=== PATIENT | female | born 1945 | race Caucasian/White ===

== ENCOUNTER 2021-10-02 15:26 | Inpatient (IN) ==
[2021-10-02 16:53] LABS: Calcium 8.3 MG/DL (8.5-10.1); Potassium 4.6 MMOL/L (3.5-5.1)
[2021-10-02 17:26] LABS: Basophils # 0.1 10*3/uL (0.0-0.2); Basophils % 0.5 % (0.0-0.8); Eosinophils % 0.2 % (0.00-10.9); Hematocrit 26.2 VOL% (35.7-47.0); Hemoglobin 8.3 GM/DL (12.0-16.0); Immature Granulocytes % 2.6 %; Immature Granulocytes Absolute 0.46 #; Lymphocytes # 1.3 10*3/uL (1.4-4.0); Lymphocytes % 7.3 % (21.3-54.2); Mean Corpuscular HGB Conc 31.7 GM/DL (32-36); Mean Corpuscular Volume 91.6 FL (87-102); Mean Platelet Volume 10.5 FL (9.6-12.0); Monocytes % 6.2 % (1.7-12.7); Neutrophils % 83.2 % (38.7-73.9); Platelet Count 254 T/CUMM (130-400); Red Blood Count 2.86 MC/CUMM (3.8-5.5); Red Cell Distribution Width 15.5 % (9.3-17.3); White Blood Count 17.5 T/CUMM (4-12)
[2021-10-02 18:10] LABS: INR 1.1; PT Patient Result 11.9 SECS (10.5-12.0); Partial Thromboplastin Time 20.5 SECS (23.8-32.1)
[2021-10-02 18:14] LABS: Bacteria,Urine Occasional /HPF (Few); Bilirubin,Urine Negative (Negative); Blood, Urine Large mg/dL (Negative); Glucose,Urine (UA) Negative (Negative); Ketones,Urine Negative (Negative); Nitrite,Urine Negative (Negative); Protein,Urine Negative; RBC,Urine <1 /HPF (0-4); Urine Appearance CLEAR (Clear); Urine Color Yellow (Yellow); Urine Specific Gravity 1.021 (1.001-1.035); Urine Urobilinogen < 2.0 EU/DL (<2.0)
[2021-10-02] MEDS ORDERED: SODIUM CHLORIDE 0.9% 1,000 ML IV STA (18:15)
[2021-10-02] MEDS ORDERED: PANTOPRAZOLE INJ 80 MG in SODIUM CHLORIDE 0.9% 100 ML IV ONE ×2 (18:25→21:00)
[2021-10-02] MEDS ORDERED: PANTOPRAZOLE INJ 200 MG in SODIUM CHLORIDE 0.9% 250 ML IV SCH ×2 (18:30→22:00)
[2021-10-02] MEDS ORDERED: GLUCAGON 1 MG VIAL IM PRN (20:07)
[2021-10-02] MEDS ORDERED: DEXTROSE 10% 250 ML BAG IV PRN (20:25)
[2021-10-02 20:26] LABS: Hematocrit 25.4 VOL% (35.7-47.0); Hemoglobin 7.8 GM/DL (12.0-16.0)
[2021-10-02] MEDS ORDERED: PIPERACILLIN/TAZOBACTAM 3,375 MG in SODIUM CHLORIDE 0.9% 100 ML IV SCH (20:30)
[2021-10-02] MEDS: DEXT 5% NACL 0.45% KCL 20 MEQ 20 MEQ/1,000 ML BAG IV SCH (22:32)
[2021-10-02] MEDS ORDERED: SODIUM CHLORIDE 0.9% 1,000 ML IV PRN (22:55)
[2021-10-02 22:56] LABS: Basophils # 0.1 10*3/uL (0.0-0.2); Basophils % 0.3 % (0.0-0.8); Eosinophils % 0.1 % (0.00-10.9); Hematocrit 20.3 VOL% (35.7-47.0); Immature Granulocytes % 2.1 %; Immature Granulocytes Absolute 0.36 #; Lymphocytes # 2.2 10*3/uL (1.4-4.0); Lymphocytes % 12.3 % (21.3-54.2); Mean Corpuscular Volume 91.9 FL (87-102); Mean Platelet Volume 10.3 FL (9.6-12.0); Monocytes % 5.8 % (1.7-12.7); NRBC # 0.02 10*3/uL; Neutrophils % 79.4 % (38.7-73.9); Platelet Count 244 T/CUMM (130-400); Red Blood Count 2.21 MC/CUMM (3.8-5.5); Red Cell Distribution Width 15.5 % (9.3-17.3); White Blood Count 17.5 T/CUMM (4-12)
[2021-10-02 23:06] LABS: Hemoglobin 6.3 GM/DL (12.0-16.0)
[2021-10-03] MEDS ORDERED: SODIUM CHLORIDE 0.9% 1,000 ML IV PRN ×4 (00:14→06:01)
[2021-10-03] MEDS ORDERED: OCTREOTIDE 100 MCG/ML SYRINGE IV STA (00:17)
[2021-10-03] MEDS ORDERED: OCTREOTIDE 500 MCG in SODIUM CHLORIDE 0.9% 100 ML IV SCH (01:00)
[2021-10-03] MEDS ORDERED: VANCOMYCIN INJ 1,250 MG in SODIUM CHLORIDE 0.9% 250 ML IV SCH (03:00)
[2021-10-03] MEDS ORDERED: PROMETHAZINE 25 MG/1 ML VIAL ONE (04:03)
[2021-10-03] MEDS ORDERED: PROMETHAZINE INJ 25 MG in SODIUM CHLORIDE 0.9% 50 ML IV STA (04:20)
[2021-10-03 04:39] LABS: Alanine Aminotransferase 18 U/L (13-56); Albumin 2.8 G/DL (3.4-5.0); Alkaline Phosphatase 71 U/L (45-117); Aspartate Amino Transferase 15 U/L (0-37); Bilirubin,Direct < 0.100 MG/DL (0.0-0.20); Bilirubin,Indirect 0.3 MG/DL (0.0-1.0); Bilirubin,Total < 0.39 MG/DL (0.20-1.00)
[2021-10-03] MEDS ORDERED: PHENYLEPHRINE DRIP 20 MG/250 ML PREMIX IV ONE (05:09)
[2021-10-03 05:23] LABS: Basophils # 0.1 10*3/uL (0.0-0.2); Basophils % 0.5 % (0.0-0.8); Immature Granulocytes % 3.8 %; Immature Granulocytes Absolute 0.79 #; Lymphocytes # 2.8 10*3/uL (1.4-4.0); Lymphocytes % 13.4 % (21.3-54.2); Mean Corpuscular HGB Conc 31.4 GM/DL (32-36); Mean Corpuscular Volume 93.9 FL (87-102); Mean Platelet Volume 10.4 FL (9.6-12.0); NRBC # 0.04 10*3/uL; Neutrophils % 77.3 % (38.7-73.9)
[2021-10-03 05:35] LABS: Hemoglobin 9.1 GM/DL (12.0-16.0); Platelet Count 143 T/CUMM (130-400); Red Blood Count 3.09 MC/CUMM (3.8-5.5)
[2021-10-03 05:47] LABS: Hypochromia 1+; Lymphocytes 12 % (20-55); Microcytosis 1+; Platelet Estimate Adequate; Segmented Neutrophils 87 % (50-85); Total Cells Counted 100
[2021-10-03] MEDS ORDERED: SODIUM CHLORIDE 0.9% 1,000 ML IV ONE ×2 (06:25→08:52)
[2021-10-03] MEDS ORDERED: LIDOCAINE 2% 5 ML VIAL ONE (06:25)
[2021-10-03] MEDS ORDERED: SUCCINYLCHOLINE 200 MG/10 ML VIAL ONE (06:25)
[2021-10-03] MEDS ORDERED: propofoL 200 MG/20 ML VIAL IV ONE (06:25)
[2021-10-03] MEDS ORDERED: ROCURONIUM 50 MG/5 ML VIAL IV ONE (06:25)
[2021-10-03] MEDS ORDERED: ONDANSETRON 4 MG/2 ML VIAL ONE (06:25)
[2021-10-03] MEDS ORDERED: ETOMIDATE 40 MG/20 ML VIAL IV ONE (06:25)
[2021-10-03] MEDS ORDERED: PHENYLEPHRINE 1 MG/10 ML SYRINGE IV ONE (06:25)
[2021-10-03] MEDS ORDERED: SEVOFLURANE 1 UNIT/15 MINUTE INH ONE ×3 (06:25)
[2021-10-03] MEDS ORDERED: MIDAZOLAM 100 MG in SODIUM CHLORIDE 0.9% 80 ML IV PRN (07:03)
[2021-10-03] MEDS: DEXT 5% NACL 0.45% KCL 20 MEQ 20 MEQ/1,000 ML BAG IV SCH (07:37)
[2021-10-03 08:19] LABS: Basophils # 0.2 10*3/uL (0.0-0.2); Basophils % 0.7 % (0.0-0.8); Immature Granulocytes % 4.6 %; Immature Granulocytes Absolute 1.44 #; Lymphocytes # 2.9 10*3/uL (1.4-4.0); Lymphocytes % 9.2 % (21.3-54.2); Mean Corpuscular HGB Conc 31.7 GM/DL (32-36); Mean Corpuscular Volume 92.7 FL (87-102); Mean Platelet Volume 10.1 FL (9.6-12.0); Monocytes % 7.7 % (1.7-12.7); NRBC # 0.05 10*3/uL; Neutrophils % 77.8 % (38.7-73.9); Red Cell Distribution Width 14.8 % (9.3-17.3)
[2021-10-03 08:27] LABS: Red Blood Count 4.96 MC/CUMM (3.8-5.5); White Blood Count 31.1 T/CUMM (4-12)
[2021-10-03 08:28] LABS: Hemoglobin 14.6 GM/DL (12.0-16.0); Platelet Count 173 T/CUMM (130-400)
[2021-10-03 08:38] LABS: Band Neutrophils 1 % (0-10); Lymphocytes 6 % (20-55); Platelet Estimate Adequate; Segmented Neutrophils 88 % (50-85); Total Cells Counted 100
[2021-10-03 09:03] LABS: Calcium 6.8 MG/DL (8.5-10.1); Osmolality,Calculated 305.7 MOS/KG (273-304); Potassium 5.5 MMOL/L (3.5-5.1)
[2021-10-03 09:04] LABS: Alanine Aminotransferase 17 U/L (13-56); Albumin 2.2 G/DL (3.4-5.0); Alkaline Phosphatase 54 U/L (45-117); Aspartate Amino Transferase 17 U/L (0-37); Bilirubin,Total < 0.39 MG/DL (0.20-1.00); Blood Urea Nitrogen 46 MG/DL (7-18); Calcium 6.9 MG/DL (8.5-10.1); Carbon Dioxide 17 MMOL/L (21-32); Estimated Glom Filtration Rate 38 ML/MIN; Glucose 211 MG/DL (74-106); HDL Cholesterol 22 MG/DL (40-60); Osmolality,Calculated 303.8 MOS/KG (273-304); Potassium 5.4 MMOL/L (3.5-5.1); Risk Ratio 4.05; Sodium 144 MMOL/L (136-145); Thyroid Stimulating Hormone 0.732 uIU/ml (0.358-3.74); Total Protein 4.8 G/DL (6.4-8.2); Triglycerides 187 MG/DL (2-150); VLDL Cholesterol 37.4 MG/DL
[2021-10-03] MEDS: MEROPENEM 500 MG in SODIUM CHLORIDE 0.9% 100 ML IV SCH ×2 (10:00→11:17)
[2021-10-03] MEDS: LEVOTHYROXINE 100 MCG VIAL IV SCH (10:55)
[2021-10-03] MEDS: cefTRIAXone 1,000 MG in SODIUM CHLORIDE 0.9% 100 ML IV SCH (11:01)
[2021-10-03 11:03] LABS: Bilirubin,Urine Negative (Negative); Blood, Urine Negative (Negative); Glucose,Urine (UA) Negative (Negative); Hyaline Casts,Urine 1 /LPF (0-3); Ketones,Urine Negative (Negative); Mucus,Urine Occasional /LPF (Occasional); Nitrite,Urine Negative (Negative); Protein,Urine Negative; RBC,Urine 1 /HPF (0-4); Squamous Epithelial Cell,Urine Occasional /HPF (0-10); Urine Appearance CLEAR (Clear); Urine Color Yellow (Yellow); Urine Specific Gravity 1.035 (1.001-1.035); Urine Urobilinogen < 2.0 EU/DL (<2.0)
[2021-10-03 11:39] LABS: ABG Base Excess -11.5 MMOL/L (-2.5-2.5); ABG HCO3 15.6 MMOL/L (20-26); ABG Oxygen Saturation 99.8 % (95-100); ABG PCO2 29.3 MM HG (35-48); ABG PH 7.288 (7.35-7.45); ABG TCO2 12.3 MMOL/L (23-27)
[2021-10-03] MEDS ORDERED: SODIUM BICARBONATE 50 MEQ/50 ML VIAL IV ONE (11:50)
[2021-10-03 12:52] LABS: Hematocrit 45.2 VOL% (35.7-47.0); Hemoglobin 14.7 GM/DL (12.0-16.0)
[2021-10-04 04:26] LABS: ABG Base Excess -2.3 MMOL/L (-2.5-2.5); ABG HCO3 22.5 MMOL/L (20-26); ABG Oxygen Saturation 99.4 % (95-100); ABG PCO2 36.1 MM HG (35-48); ABG PH 7.395 (7.35-7.45)
[2021-10-04 04:47] LABS: PT Patient Result 11.4 SECS (10.5-12.0)
[2021-10-04 04:57] LABS: Basophils # 0.1 10*3/uL (0.0-0.2); Basophils % 0.6 % (0.0-0.8); Eosinophils # 0.1 10*3/uL (0.0-0.87); Eosinophils % 0.8 % (0.00-10.9); Hematocrit 31.6 VOL% (35.7-47.0); Hemoglobin 10.6 GM/DL (12.0-16.0); Immature Granulocytes % 3.3 %; Immature Granulocytes Absolute 0.43 #; Lymphocytes # 1.2 10*3/uL (1.4-4.0); Lymphocytes % 8.8 % (21.3-54.2); Mean Corpuscular HGB Conc 33.5 GM/DL (32-36); Mean Corpuscular Volume 89.3 FL (87-102); Mean Platelet Volume 10.3 FL (9.6-12.0); Monocytes % 9.9 % (1.7-12.7); NRBC # 0.02 10*3/uL; Neutrophils % 76.6 % (38.7-73.9); Platelet Count 113 T/CUMM (130-400); Red Blood Count 3.54 MC/CUMM (3.8-5.5); Red Cell Distribution Width 14.7 % (9.3-17.3); White Blood Count 13.2 T/CUMM (4-12)
[2021-10-04 04:58] LABS: Alanine Aminotransferase 17 U/L (13-56); Alkaline Phosphatase 46 U/L (45-117); Aspartate Amino Transferase 15 U/L (0-37); Bilirubin,Total < 0.39 MG/DL (0.20-1.00); Blood Urea Nitrogen 40 MG/DL (7-18); Calcium 7.3 MG/DL (8.5-10.1); Carbon Dioxide 22 MMOL/L (21-32); Estimated Glom Filtration Rate 63 ML/MIN; Glucose 151 MG/DL (74-106); Osmolality,Calculated 308.1 MOS/KG (273-304); Sodium 149 MMOL/L (136-145); Total Protein 4.6 G/DL (6.4-8.2)
[2021-10-04 05:17] LABS: Microcytosis 1+
[2021-10-04 05:18] LABS: Polychromasia Slight
[2021-10-04] MEDS: LEVOTHYROXINE 100 MCG VIAL IV SCH (06:45)
[2021-10-04] MEDS ORDERED: PANTOPRAZOLE 40 MG VIAL IV ONE (07:55)
[2021-10-04] MEDS: PANTOPRAZOLE 40 MG VIAL IV SCH ×2 (08:05→20:23)
[2021-10-04] MEDS ORDERED: SODIUM CHLORIDE 0.45% 1,000 ML IV SCH (10:30)
[2021-10-04] MEDS: cefTRIAXone 1,000 MG in SODIUM CHLORIDE 0.9% 100 ML IV SCH (12:20)
[2021-10-04] MEDS ORDERED: SODIUM CHLORIDE 0.9% 1,000 ML IV ONE (23:53)
[2021-10-05] MEDS ORDERED: SODIUM CHLORIDE 0.9% 1,000 ML IV PRN (01:13)
[2021-10-05 01:46] LABS: Basophils % 0.4 % (0.0-0.8); Eosinophils % 1.2 % (0.00-10.9); Hematocrit 23.7 VOL% (35.7-47.0); Hemoglobin 7.7 GM/DL (12.0-16.0); Immature Granulocytes % 2.2 %; Lymphocytes % 12.7 % (21.3-54.2); Mean Corpuscular HGB Conc 32.5 GM/DL (32-36); Mean Corpuscular Volume 91.2 FL (87-102); Mean Platelet Volume 10.6 FL (9.6-12.0); Neutrophils % 75.5 % (38.7-73.9); Platelet Count 88 T/CUMM (130-400); Red Cell Distribution Width 14.8 % (9.3-17.3); White Blood Count 8.1 T/CUMM (4-12)
[2021-10-05 01:47] LABS: ABG Base Excess 1.7 MMOL/L (-2.5-2.5); ABG HCO3 25.9 MMOL/L (20-26); ABG Oxygen Saturation 96.8 % (95-100); ABG PCO2 38.6 MM HG (35-48); ABG PH 7.444 (7.35-7.45); ABG PO2 95.8 MM HG (80-95); ABG TCO2 27.1 MMOL/L (23-27); Eosinophils # 0.1 10*3/uL (0.0-0.87); Immature Granulocytes Absolute 0.18 #; NRBC # 0.02 10*3/uL
[2021-10-05] MEDS ORDERED: SODIUM CHLORIDE 0.9% 500 ML IV ONE (03:56)
[2021-10-05 05:01] LABS: ABG Base Excess -0.7 MMOL/L (-2.5-2.5); ABG HCO3 23.9 MMOL/L (20-26); ABG Oxygen Saturation 97.2 % (95-100); ABG PCO2 38.7 MM HG (35-48); ABG PH 7.408 (7.35-7.45); ABG PO2 101.9 MM HG (80-95); ABG TCO2 25.1 MMOL/L (23-27)
[2021-10-05 05:13] LABS: Basophils % 0.3 % (0.0-0.8); Eosinophils # 0.1 10*3/uL (0.0-0.87); Hematocrit 25.3 VOL% (35.7-47.0); Hemoglobin 8.2 GM/DL (12.0-16.0); Immature Granulocytes Absolute 0.14 #; Lymphocytes % 13.8 % (21.3-54.2); Mean Corpuscular HGB Conc 32.4 GM/DL (32-36); Mean Corpuscular Volume 92.3 FL (87-102); Mean Platelet Volume 9.8 FL (9.6-12.0); Neutrophils % 74.9 % (38.7-73.9); Platelet Count 69 T/CUMM (130-400); Red Blood Count 2.74 MC/CUMM (3.8-5.5); Red Cell Distribution Width 14.6 % (9.3-17.3)
[2021-10-05 05:32] LABS: Alanine Aminotransferase 15 U/L (13-56); Albumin 1.6 G/DL (3.4-5.0); Alkaline Phosphatase 49 U/L (45-117); Aspartate Amino Transferase 17 U/L (0-37); Bilirubin,Total < 0.39 MG/DL (0.20-1.00); Blood Urea Nitrogen 17 MG/DL (7-18); Calcium 6.8 MG/DL (8.5-10.1); Carbon Dioxide 25 MMOL/L (21-32); Estimated Glom Filtration Rate 97 ML/MIN; Glucose 93 MG/DL (74-106); Osmolality,Calculated 300.9 MOS/KG (273-304); Potassium 3.4 MMOL/L (3.5-5.1); Sodium 151 MMOL/L (136-145); Total Protein 3.9 G/DL (6.4-8.2)
[2021-10-05 05:36] LABS: Hypochromia 1+; Microcytosis 1+; Platelet Estimate Decreased
[2021-10-05] MEDS: LEVOTHYROXINE 100 MCG VIAL IV SCH (06:20)
[2021-10-05] MEDS ORDERED: CALCIUM GLUCONATE RIDER 2,000 MG/100 ML PREMIX IV ONE (09:01)
[2021-10-05] MEDS ORDERED: POTASSIUM CHLORIDE RIDER 10 MEQ/100 ML PREMIX IV PRN (09:02)
[2021-10-05] MEDS ORDERED: POTASSIUM CHLORIDE RIDER 20 MEQ/100 ML PREMIX IV ONE (09:17)
[2021-10-05] MEDS: PANTOPRAZOLE 40 MG VIAL IV SCH ×2 (09:36→21:20)
[2021-10-05] MEDS: POTASSIUM CHLORIDE RIDER 20 MEQ/100 ML PREMIX IV PRN (09:37)
[2021-10-05] MEDS: BISACODYL 5 MG TABLET PO SCH ×2 (14:36→21:20)
[2021-10-05] MEDS: cefTRIAXone 1,000 MG in SODIUM CHLORIDE 0.9% 100 ML IV SCH (14:36)
[2021-10-05 14:37] LABS: Hematocrit 27.6 VOL% (35.7-47.0)
[2021-10-05] MEDS: POTASSIUM CHLORIDE 20 MEQ TABLET PO SCH ×2 (14:37→21:20)
[2021-10-05] MEDS ORDERED: POLYETHYLENE GLYCOL POWDER 255 GM BOTTLE PO ONE (18:00)
[2021-10-05] MEDS ORDERED: MAGNESIUM CITRATE 300 ML BOTTLE PO ONE (21:00)
[2021-10-05] MEDS ORDERED: hydrALAZINE 20 MG/1 ML VIAL IV ONE (22:00)
[2021-10-05 22:31] LABS: Hemoglobin 9.9 GM/DL (12.0-16.0)
[2021-10-06 04:46] LABS: Basophils % 0.3 % (0.0-0.8); Eosinophils # 0.1 10*3/uL (0.0-0.87); Eosinophils % 1.3 % (0.00-10.9); Hemoglobin 8.8 GM/DL (12.0-16.0); Immature Granulocytes % 2.2 %; Immature Granulocytes Absolute 0.16 #; Lymphocytes # 0.7 10*3/uL (1.4-4.0); Lymphocytes % 9.2 % (21.3-54.2); Mean Corpuscular HGB Conc 32.6 GM/DL (32-36); Mean Corpuscular Volume 91.5 FL (87-102); Mean Platelet Volume 10.1 FL (9.6-12.0); Monocytes % 7.4 % (1.7-12.7); NRBC # 0.02 10*3/uL; Neutrophils % 79.6 % (38.7-73.9); Platelet Count 104 T/CUMM (130-400); Red Blood Count 2.95 MC/CUMM (3.8-5.5); Red Cell Distribution Width 14.6 % (9.3-17.3); White Blood Count 7.2 T/CUMM (4-12)
[2021-10-06 05:00] LABS: Alanine Aminotransferase 74 U/L (13-56); Alkaline Phosphatase 114 U/L (45-117); Aspartate Amino Transferase 73 U/L (0-37); Bilirubin,Total < 0.39 MG/DL (0.20-1.00); Blood Urea Nitrogen 11 MG/DL (7-18); Carbon Dioxide 25 MMOL/L (21-32); Estimated Glom Filtration Rate 99 ML/MIN; Glucose 97 MG/DL (74-106); Osmolality,Calculated 288.6 MOS/KG (273-304); Potassium 3.6 MMOL/L (3.5-5.1); Sodium 146 MMOL/L (136-145); Total Protein 4.7 G/DL (6.4-8.2)
[2021-10-06 05:02] LABS: Hypochromia 1+; Microcytosis 1+; Platelet Estimate Decreased
[2021-10-06] MEDS: BISACODYL 5 MG TABLET PO SCH (05:59)
[2021-10-06] MEDS: LEVOTHYROXINE 100 MCG VIAL IV SCH ×2 (06:14→06:20)
[2021-10-06] MEDS ORDERED: LACTATED RINGERS 1,000 ML IV SCH (06:30)
[2021-10-06] MEDS: PANTOPRAZOLE 40 MG VIAL IV SCH ×2 (08:10→21:33)
[2021-10-06] MEDS: FOLIC ACID 1 MG TABLET PO SCH (08:10)
[2021-10-06] MEDS: POTASSIUM CHLORIDE 20 MEQ TABLET PO SCH (08:10)
[2021-10-06 13:45] LABS: Basophils % 0.3 % (0.0-0.8); Eosinophils # 0.1 10*3/uL (0.0-0.87); Eosinophils % 1.3 % (0.00-10.9); Immature Granulocytes % 2.2 %; Immature Granulocytes Absolute 0.16 #; Lymphocytes # 0.6 10*3/uL (1.4-4.0); Lymphocytes % 8.2 % (21.3-54.2); Mean Corpuscular Volume 93.5 FL (87-102); Mean Platelet Volume 10.5 FL (9.6-12.0); Monocytes % 6.2 % (1.7-12.7); NRBC # 0.04 10*3/uL; Neutrophils % 81.8 % (38.7-73.9); Platelet Count 112 T/CUMM (130-400); Red Blood Count 2.14 MC/CUMM (3.8-5.5); Red Cell Distribution Width 14.5 % (9.3-17.3); White Blood Count 7.4 T/CUMM (4-12)
[2021-10-06 13:49] LABS: Hemoglobin 6.4 GM/DL (12.0-16.0)
[2021-10-06] MEDS ORDERED: LACTATED RINGERS 500 ML IV ONE (13:52)
[2021-10-06] MEDS: ASPIRIN CHEW 81 MG TABLET PO SCH (14:06)
[2021-10-06] MEDS: cefTRIAXone 1,000 MG in SODIUM CHLORIDE 0.9% 100 ML IV SCH (14:37)
[2021-10-06] MEDS: LACTATED RINGERS 1,000 ML IV SCH (19:30)
[2021-10-06] MEDS ORDERED: MAGNESIUM CITRATE 300 ML BOTTLE PO ONE ×2 (20:00→21:00)
[2021-10-06 21:15] LABS: Hematocrit 24.2 VOL% (35.7-47.0)
[2021-10-06 21:16] LABS: Hemoglobin 7.9 GM/DL (12.0-16.0)
[2021-10-07 03:51] LABS: Basophils % 0.2 % (0.0-0.8); Eosinophils # 0.2 10*3/uL (0.0-0.87); Eosinophils % 1.8 % (0.00-10.9); Hematocrit 22.5 VOL% (35.7-47.0); Hemoglobin 7.2 GM/DL (12.0-16.0); Immature Granulocytes Absolute 0.34 #; Lymphocytes # 1.1 10*3/uL (1.4-4.0); Lymphocytes % 12.7 % (21.3-54.2); Mean Corpuscular Volume 92.2 FL (87-102); Mean Platelet Volume 10.1 FL (9.6-12.0); Monocytes % 6.9 % (1.7-12.7); Neutrophils % 74.4 % (38.7-73.9); Platelet Count 100 T/CUMM (130-400); Red Blood Count 2.44 MC/CUMM (3.8-5.5); Red Cell Distribution Width 14.2 % (9.3-17.3); White Blood Count 8.5 T/CUMM (4-12)
[2021-10-07 04:22] LABS: Alanine Aminotransferase 34 U/L (13-56); Albumin 1.4 G/DL (3.4-5.0); Alkaline Phosphatase 66 U/L (45-117); Aspartate Amino Transferase 24 U/L (0-37); Bilirubin,Total < 0.39 MG/DL (0.20-1.00); Blood Urea Nitrogen 16 MG/DL (7-18); Calcium 7.3 MG/DL (8.5-10.1); Carbon Dioxide 25 MMOL/L (21-32); Estimated Glom Filtration Rate 99 ML/MIN; Glucose 82 MG/DL (74-106); Osmolality,Calculated 289.6 MOS/KG (273-304); Potassium 3.6 MMOL/L (3.5-5.1); Sodium 146 MMOL/L (136-145); Total Protein 3.5 G/DL (6.4-8.2)
[2021-10-07] MEDS: POTASSIUM CHLORIDE RIDER 20 MEQ/100 ML PREMIX IV PRN (04:45)
[2021-10-07] MEDS: LACTATED RINGERS 1,000 ML IV SCH ×3 (05:47→21:35)
[2021-10-07] MEDS: LEVOTHYROXINE 100 MCG VIAL IV SCH (06:26)
[2021-10-07] MEDS ORDERED: SODIUM CHLORIDE 0.9% 1,000 ML IV PRN (06:27)
[2021-10-07] MEDS ORDERED: ePHEDrine 50 MG/ML VIAL ONE (09:17)
[2021-10-07] MEDS ORDERED: propofoL 200 MG/20 ML VIAL IV ONE (09:26)
[2021-10-07] MEDS ORDERED: ETOMIDATE 20 MG/10 ML VIAL IV ONE (09:26)
[2021-10-07] MEDS ORDERED: LIDOCAINE 2% 5 ML VIAL ONE (09:26)
[2021-10-07] MEDS ORDERED: PHENYLEPHRINE 1 MG/10 ML SYRINGE IV ONE (09:26)
[2021-10-07] MEDS ORDERED: CALCIUM CHLORIDE 1,000 MG/10 ML VIAL IV ONE (09:34)
[2021-10-07] MEDS: FOLIC ACID 1 MG TABLET PO SCH (11:00)
[2021-10-07] MEDS: ASPIRIN CHEW 81 MG TABLET PO SCH (11:00)
[2021-10-07] MEDS: PANTOPRAZOLE 40 MG VIAL IV SCH ×2 (11:00→21:35)
[2021-10-07] MEDS: cefTRIAXone 1,000 MG in SODIUM CHLORIDE 0.9% 100 ML IV SCH (14:35)
[2021-10-07 15:52] LABS: Hematocrit 23.6 VOL% (35.7-47.0); Hemoglobin 7.9 GM/DL (12.0-16.0)
[2021-10-07 21:49] LABS: Hematocrit 26.3 VOL% (35.7-47.0); Hemoglobin 8.8 GM/DL (12.0-16.0)
[2021-10-08 03:54] LABS: Basophils # 0.1 10*3/uL (0.0-0.2); Basophils % 0.6 % (0.0-0.8); Eosinophils # 0.2 10*3/uL (0.0-0.87); Eosinophils % 1.7 % (0.00-10.9); Hematocrit 26.4 VOL% (35.7-47.0); Hemoglobin 8.6 GM/DL (12.0-16.0); Immature Granulocytes % 8.1 %; Immature Granulocytes Absolute 0.71 #; Lymphocytes % 10.9 % (21.3-54.2); Mean Corpuscular HGB Conc 32.6 GM/DL (32-36); Mean Platelet Volume 10.6 FL (9.6-12.0); Monocytes % 7.7 % (1.7-12.7); NRBC # 0.03 10*3/uL; Platelet Count 114 T/CUMM (130-400); Red Cell Distribution Width 14.4 % (9.3-17.3); White Blood Count 8.8 T/CUMM (4-12)
[2021-10-08 04:16] LABS: Alanine Aminotransferase 27 U/L (13-56); Albumin 1.7 G/DL (3.4-5.0); Alkaline Phosphatase 88 U/L (45-117); Aspartate Amino Transferase 16 U/L (0-37); Bilirubin,Total < 0.39 MG/DL (0.20-1.00); Blood Urea Nitrogen 11 MG/DL (7-18); Calcium 7.7 MG/DL (8.5-10.1); Carbon Dioxide 25 MMOL/L (21-32); Estimated Glom Filtration Rate 98 ML/MIN; Glucose 113 MG/DL (74-106); Potassium 3.3 MMOL/L (3.5-5.1); Sodium 143 MMOL/L (136-145); Total Protein 4.1 G/DL (6.4-8.2)
[2021-10-08 04:26] LABS: Anisocytosis 1+; Band Neutrophils 5 % (0-10); Hypochromia Slight; Lymphocytes 14 % (20-55); Microcytosis 1+; Nucleated Red Blood Cells 1 (0-5); Ovalocytes Slight; Segmented Neutrophils 73 % (50-85); Total Cells Counted 100
[2021-10-08 04:27] LABS: Platelet Estimate Adequate
[2021-10-08] MEDS: LEVOTHYROXINE 88 MCG TABLET PO SCH (06:14)
[2021-10-08] MEDS: LACTATED RINGERS 1,000 ML IV SCH (07:28)
[2021-10-08] MEDS ORDERED: hydrALAZINE 20 MG/1 ML VIAL IV PRN (08:41)
[2021-10-08] MEDS: FOLIC ACID 1 MG TABLET PO SCH (10:16)
[2021-10-08] MEDS: PANTOPRAZOLE 40 MG VIAL IV SCH ×2 (10:16→20:36)
[2021-10-08] MEDS: POTASSIUM CHLORIDE RIDER 20 MEQ/100 ML PREMIX IV PRN ×3 (10:17→20:39)
[2021-10-08] MEDS: ASPIRIN CHEW 81 MG TABLET PO SCH (10:17)
[2021-10-08] MEDS: amLODIPine 10 MG TABLET PO SCH (10:17)
[2021-10-08] MEDS ORDERED: ALBUTEROL/IPRATROPIUM 3 ML NEB RESP TX PRN (11:35)
[2021-10-08] MEDS: cefTRIAXone 1,000 MG in SODIUM CHLORIDE 0.9% 100 ML IV SCH (14:18)
[2021-10-09 04:46] LABS: Basophils % 0.4 % (0.0-0.8); Eosinophils # 0.2 10*3/uL (0.0-0.87); Eosinophils % 1.9 % (0.00-10.9); Hematocrit 26.3 VOL% (35.7-47.0); Hemoglobin 8.7 GM/DL (12.0-16.0); Immature Granulocytes % 5.6 %; Immature Granulocytes Absolute 0.47 #; Lymphocytes # 0.7 10*3/uL (1.4-4.0); Lymphocytes % 8.5 % (21.3-54.2); Mean Corpuscular HGB Conc 33.1 GM/DL (32-36); Mean Corpuscular Volume 90.7 FL (87-102); Mean Platelet Volume 9.8 FL (9.6-12.0); NRBC # 0.02 10*3/uL; Neutrophils % 75.6 % (38.7-73.9); Platelet Count 146 T/CUMM (130-400); Red Cell Distribution Width 14.9 % (9.3-17.3); White Blood Count 8.5 T/CUMM (4-12)
[2021-10-09 04:57] LABS: Calcium 7.4 MG/DL (8.5-10.1); Osmolality,Calculated 283.8 MOS/KG (273-304); Potassium 3.6 MMOL/L (3.5-5.1)
[2021-10-09 05:24] LABS: Eosinophils 1 % (0-10); Lymphocytes 18 % (20-55); Microcytosis 1+; Myelocytes 2 %; Segmented Neutrophils 71 % (50-85); Total Cells Counted 100
[2021-10-09 05:25] LABS: Ovalocytes Slight; Polychromasia Slight; Target Cells Slight
[2021-10-09] MEDS: POTASSIUM CHLORIDE RIDER 20 MEQ/100 ML PREMIX IV PRN (06:15)
[2021-10-09] MEDS: LEVOTHYROXINE 88 MCG TABLET PO SCH (06:15)
[2021-10-09] MEDS: FOLIC ACID 1 MG TABLET PO SCH (08:44)
[2021-10-09] MEDS: ASPIRIN CHEW 81 MG TABLET PO SCH (08:44)
[2021-10-09] MEDS: amLODIPine 10 MG TABLET PO SCH (08:44)
[2021-10-09] MEDS: PANTOPRAZOLE 40 MG VIAL IV SCH (08:44)
[2021-10-09] MEDS: PIPERACILLIN/TAZOBACTAM 3,375 MG in SODIUM CHLORIDE 0.9% 100 ML IV SCH ×2 (13:06→20:06)
[2021-10-09] MEDS: LINEZOLID 600 MG TABLET PO SCH ×2 (13:06→22:53)
[2021-10-09] MEDS: PANTOPRAZOLE 40 MG TABLET PO SCH (20:08)
[2021-10-09 20:18] VITALS: BP 102/55
[2021-10-10] MEDS: PIPERACILLIN/TAZOBACTAM 3,375 MG in SODIUM CHLORIDE 0.9% 100 ML IV SCH (03:25)
[2021-10-10 03:58] LABS: Basophils % 0.4 % (0.0-0.8); Eosinophils # 0.1 10*3/uL (0.0-0.87); Eosinophils % 1.7 % (0.00-10.9); Hematocrit 26.6 VOL% (35.7-47.0); Hemoglobin 8.6 GM/DL (12.0-16.0); Immature Granulocytes % 5.2 %; Immature Granulocytes Absolute 0.41 #; Lymphocytes % 13.3 % (21.3-54.2); Mean Corpuscular HGB Conc 32.3 GM/DL (32-36); Mean Corpuscular Volume 91.1 FL (87-102); Monocytes % 9.8 % (1.7-12.7); Neutrophils % 69.6 % (38.7-73.9); Platelet Count 179 T/CUMM (130-400); Red Blood Count 2.92 MC/CUMM (3.8-5.5); Red Cell Distribution Width 15.1 % (9.3-17.3); White Blood Count 7.8 T/CUMM (4-12)
[2021-10-10 04:15] LABS: Calcium 7.7 MG/DL (8.5-10.1); Osmolality,Calculated 280.1 MOS/KG (273-304); Potassium 3.5 MMOL/L (3.5-5.1)
[2021-10-10 04:22] LABS: Band Neutrophils 1 % (0-10); Eosinophils 3 % (0-10); Hypochromia Slight; Lymphocytes 22 % (20-55); Metamyelocytes 1 %; Microcytosis 1+; Myelocytes 2 %; Platelet Estimate Adequate; Segmented Neutrophils 62 % (50-85); Total Cells Counted 100
[2021-10-10] MEDS: LEVOTHYROXINE 88 MCG TABLET PO SCH (06:05)
[2021-10-10] MEDS: ASPIRIN CHEW 81 MG TABLET PO SCH (08:32)
[2021-10-10] MEDS: amLODIPine 10 MG TABLET PO SCH (08:33)
[2021-10-10] MEDS: FOLIC ACID 1 MG TABLET PO SCH (08:33)
[2021-10-10] MEDS: PANTOPRAZOLE 40 MG TABLET PO SCH (08:33)
[2021-10-11] MEDS ORDERED: LEVOFLOXACIN 500 MG TABLET PO SCH (09:00)
== END 2021-10-10 11:03 | disposition home or self-care (01) | DRG 377 ==
LOC: EDUNIT# → N.ED 15:26 → SUATTDRO 19:39 → N.EDINP 19:39 → N.CC 10-03 06:57
PROVIDERS: ADMIT Hospitalist; ATTEND Hospitalist